=== PATIENT | female | born 1980 | race Caucasian/White ===

== ENCOUNTER 2022-06-08 14:19 | Emergency (ER) | payer MEDICAID ==
[~2022-06-08] VITALS: Ht 154.9 cm; Wt 73.0 kg
[2022-06-08 14:21] VITALS: BP 122/89
--- NOTE | 2022-06-08 14:35 | NUR ---
PT AMBULATED TO BED 05.
--- NOTE | 2022-06-08 14:53 | NUR ---
41 Y/O F BIB SELF C/O RIGHT HAND/WRIST PAIN 9/10 ON AND OFF X 2 WEEKS BUT WORSE TODAY. PT HAS A SWELING ON HER R HAND FINGERS AND WRIST. PER PT PAIN RADIATES TO HER R ARM. DENIES TRAUMA RECENTLY. BLOOD SUGAR 514 AT THIS TIME. PMH: DM
--- NOTE | 2022-06-08 15:12 | NUR ---
DR KENNY AT BEDSIDE.
[2022-06-08 15:41] LABS: BASOPHILS % (AUTO) 0.3 % (0.0-2.0); EOSINOPHILS # (AUTO) 0.1 K/uL (0-0.4); EOSINOPHILS % (AUTO) 1.3 % (0.0-4.0); HEMATOCRIT 45.9 % (36-48); LYMPHOCYTES # (AUTO) 2.3 K/uL (2.5-16.5); LYMPHOCYTES % (AUTO) 28.6 % (20.5-51.1); MEAN CORPUSCULAR HEMOGLOBIN 24 pg (27-31); MEAN CORPUSCULAR HGB CONC 33 g/dL (33-37); MEAN CORPUSCULAR VOLUME 74.7 fL (80-94); MONOCYTES # (AUTO) 0.5 K/uL (0.8-1.0); MONOCYTES % (AUTO) 6.3 % (1.7-9.3); NEUTROPHILS % (AUTO) 63.5 % (42.2-75.2); PLATELET COUNT (AUTO) 259 K/uL (140-450); RED BLOOD CELL COUNT(AUTO) 6.15 MIL/uL (4.20-5.40); WHITE BLOOD COUNT (AUTO) 7.9 K/uL (4.8-10.8)
--- NOTE | 2022-06-08 15:43 | NUR ---
X-RAY AT BEDSIDE.
[2022-06-08 16:03] LABS: ANION GAP 13.8 (8-16); CARBON DIOXIDE 27.8 mmol/L (21-32); CREATININE 0.8 mg/dL (0.6-1.3); POTASSIUM 4.6 mmol/L (3.5-5.1)
[2022-06-08] MEDS ORDERED: INSULIN REGULAR, HUMAN 100 UNIT/ML VIAL SUBQ ONE (16:45)
[2022-06-08 17:38] VITALS: BP 116/85
--- NOTE | 2022-06-08 17:39 | NUR ---
Patient discharged with v/s stable. Written and verbal after care instructions given and explained. Patient verbalized understanding. Ambulatory with steady gait. All questions addressed prior to discharge. Advised to follow up with PMD.
--- NOTE | 2022-06-08 17:40 | NUR ---
Chart checked and completed. The patient's care was reviewed and supervised by Jennifer Trinh RN.
== END 2022-06-08 17:39 | disposition home or self-care (01) ==
LOC: MED 14:19
DX: R73.9 Hyperglycemia, unspecified (principal); M79.641 Pain in right hand
CPT/HCPCS: 36415; 73110; 73130; 80048; 81002; 81025; 84484; 85025; 93005; 96372; 99285; J1815